=== PATIENT | male | born 2005 | race Caucasian/White ===

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

== ENCOUNTER → 2024-02-29 | Outpatient (CLI) | payer BC ==
[2024-03-01 03:14] LABS: Hepatitis A Antibody IgM Nonreactive (Nonreactive); Hepatitis B Core IgM Nonreactive (Nonreactive); Hepatitis B Surface Antigen Nonreactive (Nonreactive); Hepatitis C IgG Antibody Nonreactive (Nonreactive)
[2024-03-01 03:41] LABS: ALT 49 U/L (10-49); AST 23 U/L (14-35); Albumin 4.8 g/dL (3.8-4.9); Albumin/Globulin Ratio 2.53 Ratio (1.60-3.17); Alkaline Phosphatase 94 U/L (41-126); BUN/Creat Ratio 12.71 Ratio (12.00-20.00); Blood Urea Nitrogen 8.9 mg/dL (9.0-27.0); Calcium 9.9 mg/dL (8.7-10.3); Carbon Dioxide 25.5 mmol/L (21.6-31.8); Chloride 107 mmol/L (96-109); Globulin 1.9 g/dL (1.6-3.3); Glucose 79 mg/dL (70-110); Potassium 4.8 mmol/L (3.5-5.5); Sodium 146 mmol/L (135-145); Total Bilirubin 0.6 mg/dL (0.3-1.2); Total Protein 6.7 g/dL (6.2-8.2)
== END | disposition home or self-care (01) ==
LOC: LABWHC1 16:08
PROVIDERS: ATTEND Internal Medicine
CPT/HCPCS: 36415; 80053; 80074; 86480

== ENCOUNTER → 2024-05-29 | Outpatient (CLI) | payer BC ==
[2024-05-29 15:15] LABS: Albumin 4.4 g/dL (3.8-4.9); Albumin/Globulin Ratio 2.1 Ratio (1.60-3.17); Bilirubin, Conjugated 0.25 mg/dL (0.20-0.40); Bilirubin,Unconjugated 0.35 mg/dL (0.20-1.00); Globulin 2.1 g/dL (1.6-3.3); Total Bilirubin 0.6 mg/dL (0.3-1.2); Total Protein 6.5 g/dL (6.2-8.2)
== END | disposition home or self-care (01) ==
LOC: LABWHC1 08:29
PROVIDERS: ATTEND Internal Medicine
DX: K50.113 Crohn's disease of large intestine with fistula (principal)
CPT/HCPCS: 36415; 80076